=== PATIENT | female | born 1950 | race Caucasian/White ===

== ENCOUNTER 2016-12-08 13:10 | Emergency (ER) | payer OTHER, MEDICARE ==
[~2016-12-08] VITALS: Ht 167.6 cm; Wt 88.5 kg
[2016-12-08 13:43] VITALS: BP 154/107
[2016-12-08] MEDS ORDERED: LISINOPRIL5 M1 PO (16:39)
[2016-12-08] MEDS ORDERED: SIMVASTATIN20 M2 PO (16:39)
[2016-12-08] MEDS ORDERED: OXYCODONE-ACET1 EACH PO (16:40)
[2016-12-08] MEDS ORDERED: MELOXICAM7.5 M1 PO (16:40)
[2016-12-08] MEDS ORDERED: ACETAMINOPHEN500 M4 PO (16:41)
--- NOTE | 2016-12-08 16:46 | ED UPPER/LOWER EXTREMITY COMPL ---
History of Present Illness General Chief Complaint: General Adult Stated Complaint: [place] FOR +DVT Source: patient Exam Limitations: no limitations Vital Signs & Intake/Output Vital Signs & Intake/Output Vital Signs Date Time Temp Pulse Resp B/P B/P Pulse O2 O2 Flow FiO2 Mean Ox Delivery Rate 12/08 1343 96.1 81 20 154/107 98 Room Air Allergies Coded Allergies: No Known Allergies (12/08/16) Reconcile Medications Acetaminophen 500 MG TABLET 2 TAB PO PRN PAIN (Reported) Lisinopril 5 MG TABLET 1 TAB PO QPM BP (Reported) Meloxicam 7.5 MG TABLET 1 TAB PO PRN PAIN/INFLAMMATION (Reported) Oxycodone HCl/Acetaminophen (Oxycodone-Acetaminophen 5-325) 5 MG-325 MG TABLET 1 TAB PO PRN PAIN (Reported) Simvastatin (Simvastatin*) 20 MG TABLET 1 TAB PO QPM CHOLESTEROL (Reported) Triage Note: PT TO ED FOR DVT. PT HAD OUT PATIENT U/S AND WAS FOUND TO HAVE A DVT. PT SENT TO ED BY DR MENDOZA. PT HAD PT IS S/P LEFT KNEE ARTHROSCOPY THE END OF OCTOBER WITH DR MENDOZA. Triage Nurses Notes Reviewed? yes Onset: Gradual Duration: getting worse Timing: recent history Severity: mild Severity Numbers: 3 HPI: Patient is a 66-year-old female with a past medical history of hypertension and hyperlipidemia who presents to emergency room stating that on November 10 patient had a left knee arthroscopy performed by Dr. Mendoza in which patient has been recovering well from the surgical procedure however for the last 5 days patient has been complaining of gradual onset of right behind the knee and calf muscular pain and swelling. Patient was evaluated yesterday by orthopedic Dr. Daly where an ultrasound was prescribed where she obtain this today showing concerns of DVT. Patient denies any fever, chills, chest pain shortness of breath arm pain jaw pain hemoptysis dyspnea on exertion history of DVT or PE Patient denies any left lower extremity swelling or calf pain (ZOE ROBERTSON) Past History Travel History Traveled to [place] past 21 day No Medical History Any Pertinent Medical History? see below for history Cardiovascular: hypertension, hyperlipidemia Surgical History Surgical History: LEFT KNEE ARTHROSCOPY Psychosocial History What is your primary language Estonian Tobacco Use: Never used ETOH Use: denies use Illicit Drug Use: denies illicit drug use Family History Hx Contributory? No (ZOE ROBERTSON) Review of Systems Review of Systems Constitutional: Reports: no symptoms. EENTM: Reports: no symptoms. Respiratory: Reports: no symptoms. Cardiovascular: Reports: see HPI, peripheral edema. Gastrointestinal/Abdominal: Reports: no symptoms. Genitourinary: Reports: no symptoms. Musculoskeletal: Reports: see HPI, muscle pain, muscle stiffness. Skin: Reports: no symptoms. Neurological/Psychological: Reports: no symptoms. Hematologic/Endocrine: Reports: no symptoms. Immunological: Reports: no symptoms. All Other Systems: Reviewed and Negative (ZOE ROBERTSON) Physical Exam Physical Exam General Appearance: no apparent distress, alert, comfortable Neurologic/Tendon: normal sensation, normal motor functions, normal tendon functions, responds to pain, no evidence tendon injury, no pulse deficit Skin: intact, normal color, warm/dry Comments: Well-developed well-nourished person in no acute distress HEENT: Normal EENT exam, . Neck: Supple, no lymphadenopathy, normal range of motion without pain or tenderness Back: Nontender, no CVA tenderness Cardiovascular: Regular rate and rhythms no murmurs rubs or gallops, normal JVP Respiratory: Chest nontender. No respiratory distress.breath sounds clear to auscultation bilaterally Abdomen: Soft, nontender nondistended, no appreciable organomegaly. Normal bowel sounds. No ascites Extremity: Right lower extremity noted below the knee and above the ankle swelling and point tenderness upon gastrocnemius palpation Left lower extremity normal inspection nontender no swelling SKIN - NO rash on exposed skin, skin is warm and dry. Psych: Mood and affect is normal, memory and judgment is normal. (ZOE ROBERTSON) Progress Differential Diagnosis: arterial insufficiency, cellulitis, CHF, compartment syndrome, contusion, dislocation, DVT, fracture, gout, septic arthritis, sprain, tendon injury Plan of Care: Patient has concerns of popliteal DVT. Discussed results with VASCULAR surgeon Who advised patient to follow up with vascular and hematology for concerns of contralateral DVT from the surgical extremity And to begin outpatient anticoagulation therapy such as XARELTO OR ELIQUIS. Edwin wrap was placed to right lower extremity. Patient has no concerns of cardiovascular complaints and no concerns of DVT. Patient was strongly advised to follow-up with disposition plan. Discussed results with Dr. Angel who agrees. Upon discharge patient looks well no apparent distress and will comply with discharge instructions and had no questions Patient's bilateral lower extremities were neurovascularly intact Diagnostic Imaging: Viewed by Me: Ultrasound. Radiology Impression: acute abnormality Comments: PATIENT: GISELE FARRELL PRESENT AGE: 66 PATIENT ACCOUNT NO: [id number] : 48 LOCATION: [facility] ORDERING PHYSICIAN: JUSTIN MENDOZA MD SERVICE DATE: 12/08/16 EXAM TYPE: US - US-UNILATERAL VENOUS DOPPLER EXAMINATION: US TRIPLEX LOWER EXTREMITY, RIGHT CLINICAL INFORMATION: Right calf pain and swelling. Status post surgery. Assess for DVT. COMPARISON: None. TECHNIQUE: Color-flow triplex imaging with spectral analysis and compression Doppler were performed on the right lower extremity. FINDINGS: There is no flow in the right popliteal vein extending to the calf veins, and these vessels are noncompressible. This is consistent with deep vein thrombosis in these regions. More proximally, respiratory variation and normal compression are noted in the visualized common femoral vein, superficial femoral vein, and profunda femoral vein. There are no focal fluid collections. IMPRESSION: 1. Positive triplex Doppler study of the right lower extremity demonstrating deep vein thrombosis involving the right popliteal vein extending to the calf veins. 2. There are no focal fluid collections. 3. This critical result was discussed with Wenceslao Daly by telephone on 12/08/2016 at 12:50 PM and it was ascertained that the content and urgency of the report was understood at the time of direct communication. DICTATED BY: PIETER KUMAR MD DATE/TIME DICTATED:12/08/161252 CANVAS BASTER JUMPBASTING:ANGEL DATE/TIME TRANSCRIBED:12/08/161252 (ZOE ROBERTSON) Departure Departure Disposition: HOME OR SELF CARE Condition: Stable Clinical Impression Primary Impression: Deep venous thrombosis of right popliteal vein Referrals: CALVIN VERA MD (PCP/Family) MUKESH LYNN,LUKE DALE MD,CAMELIA Additional Instructions: As discussed begin to elevate YOUR foot and begin to use the Edwin wrap for your symptoms. Begin the prescription of ELIQUIS as directed, prescription is waiting at [facility]. Tomorrow please follow up and establish vascular surgeon Dr. COUCH and dyer and washer FOR FURTHER EVALUATION AND TREATMENT If symptoms worsen or if YOU develop any new concerning symptom return to emergency room immediately. Departure Forms: Customer Survey General Discharge Information (SHELBI SMITHZOE) PA/BLENDING PLANT OPERATOR Co-Sign Statement Statement: ED Attending supervision documentation- [X] I saw and evaluated the patient. I have also reviewed all the pertinent lab results and diagnostic results. I agree with the findings and the plan of care as documented in the PA's/BLENDING PLANT OPERATOR's documentation. [X] I have reviewed the ED Record and agree with the PA's/BLENDING PLANT OPERATOR's documentation. [] Additions or exceptions (if any) to the PAs/BLENDING PLANT OPERATOR's note and plan are summarized below: [] (SHAHAB LYNN,RENETTA Menezes)
== END 2016-12-08 18:04 ==
LOC: ERH 13:10
DX: I82.431 Acute embolism and thrombosis of right popliteal vein (principal)